=== PATIENT | male | born 1990 | race Caucasian/White ===

== ENCOUNTER 2019-03-18 08:37 | Emergency (ER) | payer BC ==
[2019-03-18 09:20] VITALS: BP 131/88; PULSE 69
--- NOTE | 2019-03-18 09:43 | EDM.PDOC ---
ED HPI GENERAL MEDICAL PROBLEM - General Chief Complaint: Gastrointestinal Problem Stated Complaint: BLACK STOOL/DIARRHEA Time Seen by Provider: 03/18/19 09:41 Source of Information: Reports: Patient History Limitations: Reports: No Limitations - History of Present Illness INITIAL COMMENTS - FREE TEXT/NARRATIVE: 28-year-old male presents the ED with acute onset of abdominal cramping pain and diarrhea yesterday. He believes that he went somewhere between 6 and 12 times yesterday high-volume watery stool loss mostly yellowish in color. Little more black in color this morning. He ate some pizza that he had left over from the night before. He woke up yesterday morning however need that for supper the night before. She fever chills. He did vomit 1 chest 2 morning of partially undigested food in bile. Currently having mild diffuse abdominal cramping pain. Currently has a distant dull ache pressure discomfort in his mid abdomen. Feels weak dizzy when he stands up. Of note he did take a dose of Pepto-Bismol last night which is likely the cause of his dark black stool this morning. Onset: Sudden Onset Date: 03/17/19 Duration: Day(s): (And a half.), Constant Location: Reports: Abdomen (Intermittent diarrhea for the last day and a half.) Quality: Reports: Ache Severity: Moderate Improves with: Reports: None Worsens with: Reports: Other (Trying to eat or drink.) Context: Reports: Other (Spontaneous occurrence yesterday morning.). Denies: Activity, Exercise, Lifting, Sick Contact, Trauma Associated Symptoms: Reports: Loss of Appetite, Malaise, Nausea/Vomiting, Other (Diarrhea.). Denies: Confusion, Chest Pain ( Foodborne illness.), Cough, cough w sputum, Diaphoresis, Fever/Chills, Headaches, Rash, Seizure, Shortness of Breath, Syncope Treatments MANAGER QUALITY COMPLIANCE: Reports: Other (see below) (None.) Abdomen Pain Score (Numeric/FACES): 5 - Related Data Allergies Allergy/AdvReac Type Severity Reaction Status Date / Time No Known Allergies Allergy Verified 03/18/19 09:20 Home Meds: Home Meds Dicyclomine [Bentyl] 20 mg PO Q6H PRN #6 tablet 03/18/19 [Rx] Ondansetron [Zofran] 4 mg BUCCAL Q6H PRN #6 tab 03/18/19 [Rx] Past Medical History Musculoskeletal History: Reports: Other (See Below) Other Musculoskeletal History: left femur with arlen - Infectious Disease History Infectious Disease History: Reports: Chicken Pox - Past Surgical History HEENT Surgical History: Reports: Myringotomy w Tube(s), Oral Surgery Musculoskeletal Surgical History: Reports: Other (See Below) Other Musculoskeletal Surgeries/Procedures:: surgery to L femur with rods Social & Family History - Family History Family Medical History: Noncontributory - Tobacco Use Smoking Status *Q: Current Every Day Smoker Years of Tobacco use: 11 Packs/Tins Daily: 1 - Caffeine Use Caffeine Use: Reports: Coffee - Recreational Drug Use Recreational Drug Use: No - Living Situation & Occupation Living situation: Reports: Single Occupation: Employed ED ROS GENERAL - Review of Systems Review Of Systems: See Below Constitutional: Reports: No Symptoms HEENT: Reports: No Symptoms Respiratory: Reports: No Symptoms Cardiovascular: Reports: No Symptoms Endocrine: Reports: No Symptoms GI/Abdominal: Reports: No Symptoms : Reports: No Symptoms Musculoskeletal: Reports: No Symptoms Skin: Reports: No Symptoms Neurological: Reports: No Symptoms Psychiatric: Reports: No Symptoms Hematologic/Lymphatic: Reports: No Symptoms Immunologic: Reports: No Symptoms ED EXAM, GI/ABD - Physical Exam Exam: See Below Exam Limited By: No Limitations General Appearance: Alert, WD/WN, Mild Distress Eyes: Bilateral: Normal Appearance (No scleral icterus) Throat/Mouth: Other (Tongue is mildly dry.) Head: Atraumatic, Other Neck: Normal Inspection, Supple, Non-Tender, Full Range of Motion. No: Lymphadenopathy (L), Lymphadenopathy (R) Respiratory/Chest: No Respiratory Distress, Lungs Clear, Normal Breath Sounds. No: Respiratory Distress Cardiovascular: Normal Peripheral Pulses, Regular Rate, Rhythm, No Edema, No Gallop, No Murmur, No Rub GI/Abdominal Exam: Soft, Tender, Abnormal Bowel Sounds (Increased bowel sounds throughout all 4 quadrants.). No: Guarding, Rigid, Rebound (Minimally tender periumbilical with no rebound) (Male) Exam: No Hernia Back Exam: Normal Inspection, Full Range of Motion Extremities: Normal Inspection, Normal Range of Motion, Non-Tender Neurological: Alert, Oriented, CN II-XII Intact, Normal Cognition Psychiatric: Normal Affect, Normal Mood Skin Exam: Warm, Dry, Intact, Normal Color, No Rash Course - Vital Signs Last Recorded V/S: Last Vital Signs Temp 36.7 C 03/18/19 09:16 Pulse 69 03/18/19 09:16 Resp 19 03/18/19 09:16 BP 131/88 03/18/19 09:16 Pulse Ox 99 03/18/19 09:16 - Orders/Labs/Meds Orders: Active Orders 24 hr Category Date Time Status CULTURE STOOL + SHIGATOX [RM] Stat Lab 03/18/19 09:40 Received Dextrose 5%-Lactated Ringers 1,000 ml Med 03/18/19 09:45 Active IV ASDIRECTED Ketorolac [Toradol] Med 03/18/19 10:15 Active 30 mg IVPUSH ONETIME Medication Orders Dextrose/Lactated Ringer's (Dextrose 5%-Lactated Ringers) 1,000 mls @ 999 mls/ hr IV ASDIRECTED EDNA Last Admin: 03/18/19 10:33 Dose: 999 mls/hr Ketorolac Tromethamine (Toradol) 30 mg IVPUSH ONETIME EDNA Last Admin: 03/18/19 10:33 Dose: 30 mg Labs: Laboratory Tests 03/18/19 03/18/19 03/18/19 Range/Units 09:30 10:15 10:15 WBC 5.11 (4.23-9.07) K/mm3 RBC 5.07 (4.63-6.08) M/mm3 Hgb 15.5 (13.7-17.5) gm/dl Hct 45.3 (40.1-51.0) % MCV 89.3 (79.0-92.2) fl MCH 30.6 (25.7-32.2) pg MCHC 34.2 (32.2-35.5) g/dl RDW Std Deviation 41.5 (35.1-43.9) fL Plt Count 173 (163-337) K/mm3 MPV 9.3 L (9.4-12.3) fl Neutrophils % (Manual) 68 H (40-60) % Band Neutrophils % 0 (0-10) % Lymphocytes % (Manual) 17 L (20-40) % Atypical Lymphs % 0 % Monocytes % (Manual) 11 H (2-10) % Eosinophils % (Manual) 4 (0.8-7.0) % Basophils % (Manual) 0 L (0.2-1.2) Platelet Estimate Adequate RBC Morph Comment Normal Sodium 136 (136-145) mEq/L Potassium 4.3 (3.5-5.1) mEq/L Chloride 103 (98-107) mEq/L Carbon Dioxide 22 (21-32) mEq/L Anion Gap 15.3 H (5-15) BUN 14 (7-18) mg/dL Creatinine 0.9 (0.7-1.3) mg/dL Est Cr Clr Drug Dosing 121.52 mL/min Estimated GFR (MDRD) > 60 (>60) mL/min BUN/Creatinine Ratio 15.6 (14-18) Glucose 95 (74-106) mg/dL Calcium 9.2 (8.5-10.1) mg/dL Magnesium 2.0 (1.8-2.4) mg/dl Total Bilirubin 0.3 (0.2-1.0) mg/dL AST 19 (15-37) U/L ALT 25 (16-63) U/L Alkaline Phosphatase 61 (46-116) U/L C-Reactive Protein 2.1 H* (<1.0) mg/dL Total Protein 7.5 (6.4-8.2) g/dl Albumin 4.2 (3.4-5.0) g/dl Globulin 3.3 gm/dL Albumin/Globulin Ratio 1.3 (1-2) Lipase (73-393) U/L Urine Color Yellow (Yellow) Urine Appearance Clear (Clear) Urine pH 5.5 (5.0-8.0) Ur Specific Elim 1.025 (1.005-1.030) Urine Protein Negative (Negative) Urine Glucose (UA) Negative (Negative) Urine Ketones Negative (Negative) Urine Occult Blood Trace-intact H (Negative) Urine Nitrite Negative (Negative) Urine Bilirubin Negative (Negative) Urine Urobilinogen 0.2 (0.2-1.0) Ur Leukocyte Esterase Negative (Negative) Urine RBC 5-10 H (0-5) /hpf Urine WBC 0-5 (0-5) /hpf Ur Epithelial Cells 0-5 (0-5) /hpf Urine Bacteria Few (FEW) /hpf Urine Mucus Many H (FEW) /hpf 03/18/19 Range/Units 10:15 WBC (4.23-9.07) K/mm3 RBC (4.63-6.08) M/mm3 Hgb (13.7-17.5) gm/dl Hct (40.1-51.0) % MCV (79.0-92.2) fl MCH (25.7-32.2) pg MCHC (32.2-35.5) g/dl RDW Std Deviation (35.1-43.9) fL Plt Count (163-337) K/mm3 MPV (9.4-12.3) fl Neutrophils % (Manual) (40-60) % Band Neutrophils % (0-10) % Lymphocytes % (Manual) (20-40) % Atypical Lymphs % % Monocytes % (Manual) (2-10) % Eosinophils % (Manual) (0.8-7.0) % Basophils % (Manual) (0.2-1.2) Platelet Estimate RBC Morph Comment Sodium (136-145) mEq/L Potassium (3.5-5.1) mEq/L Chloride (98-107) mEq/L Carbon Dioxide (21-32) mEq/L Anion Gap (5-15) BUN (7-18) mg/dL Creatinine (0.7-1.3) mg/dL Est Cr Clr Drug Dosing mL/min Estimated GFR (MDRD) (>60) mL/min BUN/Creatinine Ratio (14-18) Glucose (74-106) mg/dL Calcium (8.5-10.1) mg/dL Magnesium (1.8-2.4) mg/dl Total Bilirubin (0.2-1.0) mg/dL AST (15-37) U/L ALT (16-63) U/L Alkaline Phosphatase (46-116) U/L C-Reactive Protein (<1.0) mg/dL Total Protein (6.4-8.2) g/dl Albumin (3.4-5.0) g/dl Globulin gm/dL Albumin/Globulin Ratio (1-2) Lipase 58 L (73-393) U/L Urine Color (Yellow) Urine Appearance (Clear) Urine pH (5.0-8.0) Ur Specific Elim (1.005-1.030) Urine Protein (Negative) Urine Glucose (UA) (Negative) Urine Ketones (Negative) Urine Occult Blood (Negative) Urine Nitrite (Negative) Urine Bilirubin (Negative) Urine Urobilinogen (0.2-1.0) Ur Leukocyte Esterase (Negative) Urine RBC (0-5) /hpf Urine WBC (0-5) /hpf Ur Epithelial Cells (0-5) /hpf Urine Bacteria (FEW) /hpf Urine Mucus (FEW) /hpf Meds: Medications Generic Name Dose Route Start Last Admin Trade Name Freq PRN Reason Stop Dose Admin Dextrose/Lactated Ringer's 1,000 mls @ 999 mls/hr 03/18/19 09:45 03/18/19 10: 33 Dextrose 5%-Lactated Ringers IV 999 mls/hr ASDIRECTED EDNA Administration Ketorolac Tromethamine 30 mg 03/18/19 10:15 03/18/19 10:33 Toradol IVPUSH 30 mg ONETIME EDNA Administration Discontinued Medications Generic Name Dose Route Start Last Admin Trade Name Freq PRN Reason Stop Dose Admin Dicyclomine HCl 20 mg 03/18/19 12:02 Bentyl PO 03/18/19 12:03 ONETIME ONE Hydromorphone HCl 0.5 mg 03/18/19 12:02 Dilaudid IVPUSH 03/18/19 12:03 ONETIME ONE Metoclopramide HCl 7.5 mg 03/18/19 11:03 03/18/19 11:23 Reglan IVPUSH 03/18/19 11:04 7.5 mg ONETIME ONE Administration - Radiology Interpretation Free Text/Narrative:: 20-year-old male presents to the ED with acute onset of mild PAIN and quite severe diarrhea starting yesterday morning upon awakening. He states yesterday once between 6 and 12 times large-volume yellowish dark stool color. This morning he gone 3 times and is more dark black in color. He has a deep aching discomfort in his epigastrium. He feels weak and dizzy when standing. Orthostatics were mildly positive. Small possibility of foodborne illness. The stool has been collected and will be sent for white blood cells and culture. Most likely viral gastroenteritis. An IV D5 Ringer's lactate at open. Routine labs to be obtained CBC CMP CRP and a lipase. Currently he is not nauseated or vomiting. - Re-Assessments/Exams Free Text/Narrative Re-Assessment/Exam: 03/18/19 11:04 patient is now feeling more nauseated with increased abdominal cramping pain. I did order Toradol 30 mg IV for relief of pain given Reglan 7.5 mg IV.Labs reveal a normal white count at 5.11. Differential is 60% neutrophils no bands. 17% lymphocytes. Hemoglobin is 15.5 with hematocrit of 45.3. Platelet counts 173,000. Urinalysis was normal with a trace of intact blood. No signs of infection. Stool contains no white blood cells strongly suggesting viral etiology. 03/18/19 11:44 Chemistry is now back showing a sodium of 136 and a potassium maintained at 4.3. Chloride 103 with a bicarbonate 22. Anion gap is 15.3. BUN is 14 with a creatinine of 0.9. GFR is greater than 60. Glucose is 95 with a calcium of 9.2. Magnesium is 2.0. Total bilirubin is 0.3. AST is 19 with an ALT of 29. Alk phosphatase is 61. C-reactive protein is mildly elevated at 2.1. Total protein 7.5 with an albumin fraction of 4.2. Lipase is 58. Urinalysis shows trace blood alcohol blood and 5-10 RBCs per high-power field. 03/18/19 12:03 nausea is improved. Still having diffuse abdominal discomfort. Going to give him Bentyl 20 mg by mouth and dose of Dilaudid 0.5 mg IV before pulled his IV. He will go home on clear fluids such as Gatorade/Powerade. Jell- O at any time. Advance to soup broth later tonight such as turkey rice chicken noodle etc. Avoid all dairy products and no apple juice or grape juice until stools are formed backup. Going to send him home with Zofran 4 mg sublingual every 4-6 hours when necessary 6 tablets. Bentyl 20 mg every 6 hours as needed for relief of abdominal cramping pain 6 tablets. Departure - Departure Time of Disposition: 12:10 Disposition: Home, Self-Care 01 Condition: Fair Clinical Impression: Viral gastroenteritis, Abdominal pain - Discharge Information *PRESCRIPTION DRUG MONITORING PROGRAM REVIEWED*: Not Applicable *COPY OF PRESCRIPTION DRUG MONITORING REPORT IN PATIENT MARILIN: Not Applicable Prescriptions: Dicyclomine [Bentyl] 20 mg PO Q6H PRN #6 tablet PRN Reason: Abdominal cramps/diarrhea Ondansetron [Zofran] 4 mg BUCCAL Q6H PRN #6 tab PRN Reason: nausea or vomiting Referrals: PCP,None [Primary Care Provider] - Forms: ED Department Discharge, ED Return to Work/School Form Additional Instructions: Evaluation the emergency room today in regards to acute onset of nausea vomiting followed by significant diarrhea. Does cause volume depletion which dropped her blood pressure and major dizzy and weak. Her headache rehydrated in the ED with a liter of IV fluids. Last proved to be highly suggestive of a viral gastroenteritis versus foodborne illness. Is a black because of taking Pepto-Bismol last night no sign of a GI bleed or internal hemorrhage. Treatment is time to get the virus side of your system. This usually about 3 days. Treatment at home is Gatorade/Powerade usually 5-6 ounces sipped per hour to maintain hydration. Hungry try soda crackers first and if tolerated may take Jell-O at any time. May then advance to toast with a little bit of jam on it etc. Then advance to soup broth or turkey noodle/chicken rice soup when hungry. Avoid all dairy products and no apple juice or grape juice until stools are formed back up. This will take about 45 days once the diarrhea has subsided. May take Zofran 4 mg under the tongue every 4-6 hours necessary for relief of any further nausea to prevent vomiting. Just Bentyl 20 mg tablet every 6 hours as needed for relief of abdominal cramping pain or abdominal discomfort. Expect improvement over the next 36 hours. - My Orders Last 24 Hours: My Active Orders 03/18/19 09:40 CULTURE STOOL + SHIGATOX [RM] Stat 03/18/19 09:45 Dextrose 5%-Lactated Ringers 1,000 ml IV ASDIRECTED 03/18/19 10:15 Ketorolac [Toradol] 30 mg IVPUSH ONETIME - Assessment/Plan Last 24 Hours: My Active Orders 03/18/19 09:40 CULTURE STOOL + SHIGATOX [RM] Stat 03/18/19 09:45 Dextrose 5%-Lactated Ringers 1,000 ml IV ASDIRECTED 03/18/19 10:15 Ketorolac [Toradol] 30 mg IVPUSH ONETIME
[2019-03-18] MEDS ORDERED: Dextrose 5%-Lactated Ringers 1,000 ML IV SCH (09:45)
[2019-03-18] MEDS ORDERED: Ketorolac 30 MG/ML SDV IVPUSH SCH (10:15)
[2019-03-18] MEDS ORDERED: Metoclopramide 10 MG/2 ML SDV IVPUSH ONE (11:03)
[2019-03-18] MEDS ORDERED: Dicyclomine 10 MG Cap PO ONE (12:02)
[2019-03-18] MEDS ORDERED: HYDROmorphone 0.5 MG/0.5 ML Syringe IVPUSH ONE (12:02)
== END 2019-03-18 12:05 | disposition home or self-care (01) ==
LOC: JD.ED 08:37
DX: A08.4 Viral intestinal infection, unspecified (principal); F17.200 Nicotine dependence, unspecified, uncomplicated
CPT/HCPCS: 36415; 80053; 81001; 83690; 83735; 85007; 85027; 86140; 87046; 89055; 96361; 96374; 96375; 99284; J1885; J2765; J7042

== ENCOUNTER 2021-05-14 10:38 | Emergency (ER) | payer BC, MEDICAID ==
[2021-05-14 10:59] VITALS: BP 120/67; PULSE 58
[2021-05-14] MEDS ORDERED: Sodium Chloride 0.9% 1,000 ML IV SCH (11:15)
[2021-05-14] MEDS ORDERED: Ondansetron 4 MG/2 ML SDV IVPUSH ONE (11:15)
[2021-05-14] MEDS ORDERED: Sodium Chloride 0.9% 10 ML Syringe FLUSH PRN (11:15)
[2021-05-14] MEDS ORDERED: HYDROmorphone 0.5 MG/0.5 ML Syringe IVPUSH ONE (11:17)
[2021-05-14] MEDS ORDERED: Ketorolac 30 MG/ML SDV IVPUSH ONE (11:17)
--- NOTE | 2021-05-14 12:09 | CT ---
CT abdomen and pelvis Technique: Multiple axial sections were obtained from above the dome of the diaphragm inferiorly through the pubic symphysis. Intravenous and oral contrast were not utilized. Reconstructed coronal and sagittal images were obtained. Comparison: No previous abdominal study is available. Findings: Both kidneys show slight increased density within the collecting systems which is suspicious for early medullary sponge kidney. Definite nonobstructing calculus is noted within the left kidney measuring 2 mm. Ureters show no dilatation. No abnormal calcifications are seen along the course of the ureters. Bladder shows no abnormal calcifications. Visualized lung bases show nothing acute. Noncontrast appearance of the liver appears within normal limits. Spleen appears within normal limits. Adrenal glands show no nodule. Pancreas shows no discrete abnormality. Gallbladder contains no calcified gallstones. Abdominal aorta shows no aneurysm. No retroperitoneal adenopathy is seen. Appendix is seen and appears to be normal in size. Increased stool is noted throughout the colon. No discrete pelvic adenopathy or mass is seen. Bone window settings were reviewed. Vacuum disc phenomena is seen within the L5-S1 disc. Other portions of the osseous structures show nothing acute. Small amount of fluid is noted off the inferior liver as well as within the pelvis. Etiology for this fluid is not appreciated. Impression: 1. 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 Small 2 mm calculus is noted within the lower left kidney. No ureteral dilatation or ureteral stone is seen. 2. Mild increased stool within the colon is seen. 3. Small amount of nonspecific fluid is seen off the inferior liver and within the pelvis. 4. Other findings believed to be incidental as noted above. Diagnostic code #3
--- NOTE | 2021-05-14 12:25 | EDM.PDOC ---
ED HPI GENERAL MEDICAL PROBLEM - General Chief Complaint: Abdominal Pain Stated Complaint: RT ABD PAIN Time Seen by Provider: 05/14/21 10:49 Source of Information: Reports: Patient History Limitations: Reports: No Limitations - History of Present Illness INITIAL COMMENTS - FREE TEXT/NARRATIVE: The patient presents with lower abdominal pain and right flank pain. This all started last night. He has some nausea but no vomiting. He has some dysuria. He has not had a bowel movement in 2 days. He has no fever, chills, cough, congestion, runny nose, chest pain, shortness of breath or diarrhea. He still has appendix and gallbladder. He never had a kidney stone before. Onset: Gradual Duration: Day(s): (last night) Location: Reports: Abdomen, Back Quality: Reports: Sharp Severity: Moderate Improves with: Reports: None Worsens with: Reports: None Associated Symptoms: Reports: Nausea/Vomiting. Denies: Chest Pain, Cough, Fever/Chills, Headaches, Shortness of Breath Lower Abdomen Pain Score (Numeric/FACES): 3 - Related Data Allergies Allergy/AdvReac Type Severity Reaction Status Date / Time No Known Allergies Allergy Verified 05/14/21 10:58 Home Meds: Home Meds . [No Known Home Meds] 05/14/21 [History] Past Medical History Musculoskeletal History: Reports: Other (See Below) Other Musculoskeletal History: left femur with arlen - Infectious Disease History Infectious Disease History: Reports: Chicken Pox - Past Surgical History HEENT Surgical History: Reports: Myringotomy w Tube(s), Oral Surgery Musculoskeletal Surgical History: Reports: Other (See Below) Other Musculoskeletal Surgeries/Procedures:: surgery to L femur with rods Social & Family History - Family History Family Medical History: No Pertinent Family History - Tobacco Use Tobacco Use Status *Q: Current Every Day Tobacco User Years of Tobacco use: 14 Packs/Tins Daily: 0.8 - Caffeine Use Caffeine Use: Reports: Coffee - Recreational Drug Use Recreational Drug Use: No - Living Situation & Occupation Living situation: Reports: Single Occupation: Employed ED ROS GENERAL - Review of Systems Review Of Systems: See Below Constitutional: Reports: No Symptoms HEENT: Reports: No Symptoms Respiratory: Reports: No Symptoms Cardiovascular: Reports: No Symptoms Endocrine: Reports: No Symptoms GI/Abdominal: Reports: Abdominal Pain, Nausea. Denies: Diarrhea, Vomiting : Reports: Dysuria, Flank Pain Musculoskeletal: Reports: Back Pain ED EXAM, GI/ABD - Physical Exam Exam: See Below Exam Limited By: No Limitations General Appearance: Alert, No Apparent Distress Ears: Normal External Exam Nose: Normal Inspection Head: Atraumatic, Normocephalic Neck: Normal Inspection Respiratory/Chest: No Respiratory Distress, Lungs Clear, Normal Breath Sounds Cardiovascular: Regular Rate, Rhythm, No Edema, No Murmur GI/Abdominal Exam: Soft, No Organomegaly, Tender (moderate tenderness to the RLQ and lower mid abdomen) Back Exam: CVA Tenderness (R) Extremities: Normal Inspection Course - Vital Signs Last Recorded V/S: Last Vital Signs Temp 96.9 F 05/14/21 10:52 Pulse 58 L 05/14/21 10:52 Resp 18 05/14/21 10:52 BP 120/67 05/14/21 10:52 Pulse Ox 100 05/14/21 10:52 - Orders/Labs/Meds Orders: Active Orders 24 hr Category Date Time Status Peripheral IV Care [RC] . DIRECTED Care 05/14/21 11:16 Active UA W/MICROSCOPIC [URIN] Stat Lab 05/14/21 13:24 Results Sodium Chloride 0.9% [Normal Saline] 1,000 ml Med 05/14/21 11:15 Active IV ASDIRECTED Sodium Chloride 0.9% [Saline Flush] Med 05/14/21 11:15 Active 10 ml FLUSH ASDIRECTED PRN ED Antiemetic Medication Reflex [OM.PC] Stat Oth 05/14/21 11:16 Ordered Peripheral IV Insertion Adult [OM.PC] Stat Oth 05/14/21 11:15 Ordered Medication Orders Sodium Chloride (Normal Saline) 1,000 mls @ 125 mls/hr IV ASDIRECTED EDNA Last Admin: 05/14/21 11:27 Dose: 125 mls/hr Documented by: DENVER Sodium Chloride (Sodium Chloride 0.9% 10 Ml Syringe) 10 ml FLUSH ASDIRECTED PRN PRN Reason: Keep Vein Open Last Admin: 05/14/21 11:28 Dose: 10 ml Documented by: DENVER Labs: Laboratory Tests 05/14/21 05/14/21 05/14/21 Range/Units 11:30 11:30 13:24 WBC 14.52 H (4.23-9.07) K/mm3 RBC 4.81 (4.63-6.08) M/mm3 Hgb 14.7 (13.7-17.5) gm/dl Hct 44.8 (40.1-51.0) % MCV 93.1 H D (79.0-92.2) fl MCH 30.6 (25.7-32.2) pg MCHC 32.8 (32.2-35.5) g/dl RDW Std Deviation 41.5 (35.1-43.9) fL Plt Count 292 D (163-337) K/mm3 MPV 8.7 L (9.4-12.3) fl Neut % (Auto) 81.8 H (34.0-67.9) % Lymph % (Auto) 8.8 L (21.8-53.1) % Patrick % (Auto) 8.3 (5.3-12.2) % Eos % (Auto) 0.8 (0.8-7.0) Baso % (Auto) 0.1 (0.1-1.2) % Neut # (Auto) 11.89 H (1.78-5.38) K/mm3 Lymph # (Auto) 1.28 L (1.32-3.57) K/mm3 Patrick # (Auto) 1.20 H (0.30-0.82) K/mm3 Eos # (Auto) 0.11 (0.04-0.54) K/mm3 Baso # (Auto) 0.01 (0.01-0.08) K/mm3 Sodium 141 (136-145) mEq/L Potassium 4.2 (3.5-5.1) mEq/L Chloride 103 (98-107) mEq/L Carbon Dioxide 30 (21-32) mEq/L Anion Gap 12.2 (5-15) BUN 13 (7-18) mg/dL Creatinine 0.8 (0.7-1.3) mg/dL Est Cr Clr Drug Dosing 134.27 mL/min Estimated GFR (MDRD) > 60 (>60) mL/min BUN/Creatinine Ratio 16.3 (14-18) Glucose 111 H (70-99) mg/dL Calcium 8.9 (8.5-10.1) mg/dL Total Bilirubin 0.3 (0.2-1.0) mg/dL AST 10 L (15-37) U/L ALT 22 (16-63) U/L Alkaline Phosphatase 73 (46-116) U/L Total Protein 6.7 (6.4-8.2) g/dl Albumin 4.1 (3.4-5.0) g/dl Globulin 2.6 gm/dL Albumin/Globulin Ratio 1.6 (1-2) Lipase 47 L (73-393) U/L Urine Color Yellow (Yellow) Urine Appearance Clear (Clear) Urine pH 7.0 (5.0-8.0) Ur Specific Weiser 1.025 (1.005-1.030) Urine Protein 1+ H (Negative) Urine Glucose (UA) Negative (Negative) Urine Ketones Negative (Negative) Urine Occult Blood Negative (Negative) Urine Nitrite Negative (Negative) Urine Bilirubin Negative (Negative) Urine Urobilinogen 1.0 (0.2-1.0) Ur Leukocyte Esterase Negative (Negative) Meds: Medications Generic Name Dose Route Start Last Admin Trade Name Ross PRN Reason Stop Dose Admin Sodium Chloride 1,000 mls @ 125 mls/hr 05/14/21 11:15 05/14/21 11:27 Normal Saline IV 125 mls/hr ASDIRECTED EDNA Administration Sodium Chloride 10 ml 05/14/21 11:15 05/14/21 11:28 Sodium Chloride 0.9% 10 Ml Syringe FLUSH 10 ml ASDIRECTED PRN Administration Keep Vein Open Discontinued Medications Generic Name Dose Route Start Last Admin Trade Name Ross PRN Reason Stop Dose Admin Hydromorphone HCl 0.5 mg 05/14/21 11:17 05/14/21 11:28 Hydromorphone 0.5 Mg/0.5 Ml Syringe IVPUSH 05/14/21 11:18 0.5 mg ONETIME ONE Administration Ketorolac Tromethamine 30 mg 05/14/21 11:17 05/14/21 11:27 Ketorolac 30 Mg/Ml Sdv IVPUSH 05/14/21 11:18 30 mg ONETIME ONE Administration Ondansetron HCl 4 mg 05/14/21 11:15 05/14/21 11:28 Ondansetron 4 Mg/2 Ml Sdv IVPUSH 05/14/21 11:16 4 mg ONETIME ONE Administration - Re-Assessments/Exams Free Text/Narrative Re-Assessment/Exam: 05/14/21 12:21 I ordered an IV NS 1L bolus, zofran 4mg IV, dilaudid 1mg IV, toradol 30mg IV, labs, UA and a CT of his abdomen and pelvis without contrast to look for a kidney stone. His WBC was elevated at 14.52. His CMP looks good. His lipase was low at 47. 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 Small 2mm calculus is noted within the lower left kidney. No ureteral dilatation or ureteral stone is seen. Mild increased stool within the colon is seen. Small amount of nonspecific fluid is seen off the inferior liver and within the pelvis. Other findings believed to be incidental. The appendix is seen and appears to be normal in size. 05/14/21 13:43 He feels better. I feel this could be constipation. I will give him some magnesium citrate here and some more for home and have him return if he is worse. Departure - Departure Time of Disposition: 13:50 Disposition: Home, Self-Care 01 Condition: Good Clinical Impression: Abdominal pain Qualifiers: Abdominal location: lower abdomen, unspecified Qualified Code(s): R10.30 - Lower abdominal pain, unspecified Constipation Qualifiers: Constipation type: other constipation type Qualified Code(s): K59.09 - Other constipation - Discharge Information *PRESCRIPTION DRUG MONITORING PROGRAM REVIEWED*: Not Applicable *COPY OF PRESCRIPTION DRUG MONITORING REPORT IN PATIENT MARILIN: Not Applicable Referrals: PCP,None [Primary Care Provider] - Sonali Gagnon MD [Physician] - 1 Week Forms: ED Department Discharge Additional Instructions: Drink plenty of fluids. If you do not have a bowel movement by 5pm take the other half of the bottle of magnesium citrate. Please return if you are worse. Sepsis Event Note (ED) - Evaluation Sepsis Screening Result: No Definite Risk - Focused Exam Vital Signs: Vital Signs Temp Pulse Resp BP Pulse Ox 05/14/21 10:52 96.9 F 58 L 18 120/67 100 - My Orders Last 24 Hours: My Active Orders 05/14/21 11:15 Sodium Chloride 0.9% [Normal Saline] 1,000 ml IV ASDIRECTED Sodium Chloride 0.9% [Saline Flush] 10 ml FLUSH ASDIRECTED PRN Peripheral IV Insertion Adult [OM.PC] Stat 05/14/21 11:16 Peripheral IV Care [RC] . DIRECTED ED Antiemetic Medication Reflex [OM.PC] Stat 05/14/21 13:24 UA W/MICROSCOPIC [URIN] Stat - Assessment/Plan Last 24 Hours: My Active Orders 05/14/21 11:15 Sodium Chloride 0.9% [Normal Saline] 1,000 ml IV ASDIRECTED Sodium Chloride 0.9% [Saline Flush] 10 ml FLUSH ASDIRECTED PRN Peripheral IV Insertion Adult [OM.PC] Stat 05/14/21 11:16 Peripheral IV Care [RC] . DIRECTED ED Antiemetic Medication Reflex [OM.PC] Stat 05/14/21 13:24 UA W/MICROSCOPIC [URIN] Stat
[2021-05-14] MEDS ORDERED: Magnesium Citrate Solution 296 ML Bottle PO ONE (13:46)
== END 2021-05-14 14:15 | disposition home or self-care (01) ==
LOC: JD.ED 10:38
DX: K59.09 Other constipation (principal); R11.2 Nausea with vomiting, unspecified; Z72.0 Tobacco use
CPT/HCPCS: 36415; 74176; 74176-26; 80053; 81001; 83690; 85025; 96374; 96375; 99284-25; 99285; A9270-GY; J1170; J1885; J2405; J7030

== ENCOUNTER 2021-05-15 08:31 | Emergency (ER) | payer MEDICAID ==
--- NOTE | 2021-05-15 09:25 | EDM.PDOC ---
ED HPI GENERAL MEDICAL PROBLEM - General Chief Complaint: Abdominal Pain Stated Complaint: CONSTIPATION Time Seen by Provider: 05/15/21 09:25 - History of Present Illness INITIAL COMMENTS - FREE TEXT/NARRATIVE: 30-year-old male presents the emergency room with abdominal pain. Patient was seen here yesterday had a pretty thorough evaluation laboratory evaluation is unrevealing CT without contrast showed a normal appendix no ev idence of kidney stone. He might have some development consistent with medullary sponge disease he had stool throughout his colon. He was treated as though he might have constipation and despite mag citrate he is not getting any better the patient has some nausea no vomiting he feels the pain is actually getting worse. He has not had any fevers or chills. Treatments DERRICK HAND: Reports: Other (see below) Other Treatments DERRICK HAND: Laxative, Suppository Bilateral Lower Abdomen Pain Score (Numeric/FACES): 5 - Related Data Allergies Allergy/AdvReac Type Severity Reaction Status Date / Time No Known Allergies Allergy Verified 05/14/21 10:58 Home Meds: Home Meds . [No Known Home Meds] 05/14/21 [History] Past Medical History Musculoskeletal History: Reports: Other (See Below) Other Musculoskeletal History: left femur with arlen - Infectious Disease History Infectious Disease History: Reports: Chicken Pox - Past Surgical History HEENT Surgical History: Reports: Myringotomy w Tube(s), Oral Surgery Musculoskeletal Surgical History: Reports: Other (See Below) Other Musculoskeletal Surgeries/Procedures:: surgery to L femur with rods Social & Family History - Family History Family Medical History: No Pertinent Family History - Tobacco Use Tobacco Use Status *Q: Current Every Day Tobacco User Years of Tobacco use: 15 Packs/Tins Daily: 7 - Caffeine Use Caffeine Use: Reports: Coffee - Alcohol Use Days Per Week of Alcohol Use: 7 Number of Drinks Per Day: 2 Total Drinks Per Week: 14 - Recreational Drug Use Recreational Drug Use: No - Living Situation & Occupation Living situation: Reports: Single Occupation: Employed ED ROS GENERAL - Review of Systems Review Of Systems: See Below Constitutional: Reports: No Symptoms HEENT: Reports: No Symptoms Respiratory: Reports: No Symptoms Cardiovascular: Reports: No Symptoms GI/Abdominal: Reports: Abdominal Pain, Constipation, Decreased Appetite, Nausea. Denies: Diarrhea : Reports: No Symptoms Musculoskeletal: Reports: No Symptoms Skin: Reports: No Symptoms Neurological: Reports: No Symptoms ED EXAM, GENERAL - Physical Exam Exam: See Below Exam Limited By: No Limitations General Appearance: Mild Distress (From the discomfort), Other (He has to position himself in the areas to find comfort) Head: Atraumatic, Normocephalic Neck: Normal Inspection, Supple, Non-Tender, Full Range of Motion Respiratory/Chest: No Respiratory Distress, Lungs Clear, Normal Breath Sounds Cardiovascular: Regular Rate, Rhythm, No Edema, No Murmur GI/Abdominal: Normal Bowel Sounds, Guarding, Rebound, Other (Rebound tenderness) Back Exam: Normal Inspection. No: CVA Tenderness (L), CVA Tenderness (R) Course - Vital Signs Last Recorded V/S: Last Vital Signs Temp 36.2 C 05/15/21 08:41 Pulse 77 05/15/21 08:41 Resp 16 05/15/21 08:41 BP 102/72 05/15/21 08:41 Pulse Ox 100 05/15/21 08:41 - Orders/Labs/Meds Orders: Active Orders 24 hr Category Date Time Status UA RFX BRIEN AND CULT IF INDIC [URIN] Stat Lab 05/15/21 09:32 Ordered Lactated Ringers [Ringers, Lactated] 1,000 ml Med 05/15/21 09:45 Active IV ASDIRECTED Sodium Chloride 0.9% [Saline Flush] Med 05/15/21 09:43 Active 10 ml FLUSH ONETIME PRN Medication Orders Lactated Ringer's (Ringers, Lactated) 1,000 mls @ 125 mls/hr IV ASDIRECTED EDNA Sodium Chloride (Sodium Chloride 0.9% 10 Ml Syringe) 10 ml FLUSH ONETIME PRN PRN Reason: IV FLUSH Last Admin: 05/15/21 11:07 Dose: 10 ml Documented by: Admin: 05/15/21 10:50 Dose: 10 ml Documented by: MARLENE Labs: Laboratory Tests 05/15/21 05/15/21 Range/Units 09:55 09:55 WBC 6.06 (4.23-9.07) K/mm3 RBC 3.59 L (4.63-6.08) M/mm3 Hgb 11.1 L D (13.7-17.5) gm/dl Hct 34.3 L (40.1-51.0) % MCV 95.5 H (79.0-92.2) fl MCH 30.9 (25.7-32.2) pg MCHC 32.4 (32.2-35.5) g/dl RDW Std Deviation 40.7 (35.1-43.9) fL Plt Count 195 D (163-337) K/mm3 MPV 8.0 L (9.4-12.3) fl Neut % (Auto) 71.2 H (34.0-67.9) % Lymph % (Auto) 16.7 L (21.8-53.1) % Towns % (Auto) 11.2 (5.3-12.2) % Eos % (Auto) 0.7 L (0.8-7.0) Baso % (Auto) 0.2 (0.1-1.2) % Neut # (Auto) 4.32 (1.78-5.38) K/mm3 Lymph # (Auto) 1.01 L (1.32-3.57) K/mm3 Towns # (Auto) 0.68 (0.30-0.82) K/mm3 Eos # (Auto) 0.04 (0.04-0.54) K/mm3 Baso # (Auto) 0.01 (0.01-0.08) K/mm3 Sodium 137 (136-145) mEq/L Potassium 4.0 (3.5-5.1) mEq/L Chloride 101 (98-107) mEq/L Carbon Dioxide 33 H (21-32) mEq/L Anion Gap 7.0 (5-15) BUN 11 (7-18) mg/dL Creatinine 0.9 (0.7-1.3) mg/dL Est Cr Clr Drug Dosing 115.50 mL/min Estimated GFR (MDRD) > 60 (>60) mL/min BUN/Creatinine Ratio 12.2 L (14-18) Glucose 105 H (70-99) mg/dL Calcium 8.7 (8.5-10.1) mg/dL Total Bilirubin 0.7 (0.2-1.0) mg/dL AST 6 L (15-37) U/L ALT 17 (16-63) U/L Alkaline Phosphatase 65 (46-116) U/L Total Protein 6.1 L (6.4-8.2) g/dl Albumin 3.3 L (3.4-5.0) g/dl Globulin 2.8 gm/dL Albumin/Globulin Ratio 1.2 (1-2) Lipase 41 L (73-393) U/L Meds: Medications Generic Name Dose Route Start Last Admin Trade Name Freq PRN Reason Stop Dose Admin Lactated Ringer's 1,000 mls @ 125 mls/hr 05/15/21 09:45 Ringers, Lactated IV ASDIRECTED EDNA Sodium Chloride 10 ml 05/15/21 09:43 05/15/21 11:07 Sodium Chloride 0.9% 10 Ml Syringe FLUSH 10 ml ONETIME PRN Administration IV FLUSH Discontinued Medications Generic Name Dose Route Start Last Admin Trade Name Freq PRN Reason Stop Dose Admin Diatrizoate Meglum/Diatrizoate Sod 120 ml 05/15/21 09:43 05/15/21 11:07 Diatrizoate Meglumine/Diatrizoate Sodium 37% 120 Ml Bottle PO 05/15/21 09:44 30 ml ONETIME ONE Administration Hydromorphone HCl 0.5 mg 05/15/21 09:35 05/15/21 09:57 Hydromorphone 0.5 Mg/0.5 Ml Syringe IVPUSH 05/15/21 09:36 0.5 mg ONETIME ONE Administration Lactated Ringer's 1,000 mls @ 999 mls/hr 05/15/21 09:35 05/15/21 09:57 Ringers, Lactated IV 05/15/21 10:35 999 mls/hr .BOLUS ONE Administration Iopamidol 100 ml 05/15/21 09:43 05/15/21 11:07 Iopamidol 612 Mg/Ml 100 Ml Bottle IVPUSH 05/15/21 09:44 100 ml ONETIME ONE Administration Ondansetron HCl 4 mg 05/15/21 09:35 05/15/21 09:59 Ondansetron 4 Mg/2 Ml Sdv IVPUSH 05/15/21 09:36 4 mg ONETIME ONE Administration - Re-Assessments/Exams Free Text/Narrative Re-Assessment/Exam: 05/15/21 11:44 I did do a repeat abdominal pelvic CT with IV and oral contrast the appendix is seen and measures the upper limits of normal. He does not have an elevated white count. Case was discussed with Dr. Addom, on-call surgeon. Her thought is to try another round to alleviate his constipation. We will have him take 255 g of MiraLAX with a half a gallon of Gatorade and have him drink it. The patient understands this and agrees to return to the emergency room in 12 hours if not better sooner if getting worse sooner if he develops a fever or worsening symptoms. Departure - Departure Time of Disposition: 11:46 Disposition: Home, Self-Care 01 Clinical Impression: Abdominal pain Qualifiers: Abdominal location: lower abdomen, unspecified Qualified Code(s): R10.30 - Lower abdominal pain, unspecified Constipation Qualifiers: Constipation type: other constipation type Qualified Code(s): K59.09 - Other constipation - Discharge Information Referrals: PCP,None [Primary Care Provider] - Forms: ED Department Discharge Additional Instructions: Return to the emergency room in 12 hours if not better sooner if getting worse return if you start running fevers or worsening problems. As we discussed parts picker to 255 g of MiraLAX this is a small bottle mixed this with a half a gallon of Gatorade and drink it. Sepsis Event Note (ED) - Evaluation Sepsis Screening Result: No Definite Risk - Focused Exam Vital Signs: Vital Signs Temp Pulse Resp BP Pulse Ox 05/15/21 08:41 36.2 C 77 16 102/72 100 - My Orders Last 24 Hours: My Active Orders 05/15/21 09:32 UA RFX BRIEN AND CULT IF INDIC [URIN] Stat 05/15/21 09:43 Sodium Chloride 0.9% [Saline Flush] 10 ml FLUSH ONETIME PRN 05/15/21 09:45 Lactated Ringers [Ringers, Lactated] 1,000 ml IV ASDIRECTED - Assessment/Plan Last 24 Hours: My Active Orders 05/15/21 09:32 UA RFX BRIEN AND CULT IF INDIC [URIN] Stat 05/15/21 09:43 Sodium Chloride 0.9% [Saline Flush] 10 ml FLUSH ONETIME PRN 05/15/21 09:45 Lactated Ringers [Ringers, Lactated] 1,000 ml IV ASDIRECTED
[2021-05-15] MEDS ORDERED: Lactated Ringers 1,000 ML IV ONE (09:35)
[2021-05-15] MEDS ORDERED: HYDROmorphone 0.5 MG/0.5 ML Syringe IVPUSH ONE (09:35)
[2021-05-15] MEDS ORDERED: Ondansetron 4 MG/2 ML SDV IVPUSH ONE (09:35)
[2021-05-15] MEDS ORDERED: Diatrizoate Meglumine/Diatrizoate Sodium 37% 120 ML Bottle PO ONE (09:43)
[2021-05-15] MEDS ORDERED: Iopamidol 612 MG/ML 100 ML Bottle IVPUSH ONE (09:43)
[2021-05-15] MEDS ORDERED: Lactated Ringers 1,000 ML IV SCH (09:45)
[2021-05-15] MEDS: Sodium Chloride 0.9% 10 ML Syringe FLUSH PRN ×2 (10:50→11:07)
--- NOTE | 2021-05-15 11:25 | CT ---
CT abdomen and pelvis Technique: Multiple axial sections were obtained from above the dome of the diaphragm inferiorly through the pubic symphysis. Intravenous and oral contrast was utilized. Reconstructed coronal and sagittal images were obtained. Comparison: Prior abdomen and pelvis CT from 05/14/21. Findings: Appendix is seen on this exam which measures up to 8 mm. This is at the upper limits of normal. Please correlate if patient has any symptoms of early appendicitis. There is a small amount of free fluid being seen within the pelvis which is within the dependent portions of the pelvis as well as off the inferior cecum. Visualized lung bases are clear. Liver shows no focal parenchymal abnormality. Spleen size is normal. Adrenal glands show no nodule. Pancreas shows no abnormality. Gallbladder contains no calcified gallstones. Kidneys show symmetric contrast enhancement with no hydronephrosis or mass. Abdominal aorta shows no aneurysm. No retroperitoneal adenopathy is seen. Right colon is dilated with stool and fluid. Transverse colon shows evidence of mostly air and fluid. Stool is noted within the descending colon and rectosigmoid regions. No pelvic adenopathy is seen. No inguinal adenopathy is noted. Orthopedic intramedullary arlen is noted within the left femur. Impression: 1. Appendix is seen and measures at the upper limits of normal at 8 mm. Please correlate if patient has symptoms of early appendicitis versus a normal variant appendix. 2. Small amount of free fluid off the inferior cecum as well as within the dependent portions of the pelvis. This free fluid has increased from prior study. 3. Fluid and stool are noted within the right colon. Air and fluid are noted within the transverse colon. Mild increased stool is seen within the left colon as well as rectosigmoid regions. 4. Other findings believed to be incidental as noted above. Diagnostic code #3
[2021-05-15 11:46] VITALS: BP 127/74; PULSE 76
== END 2021-05-15 11:57 | disposition home or self-care (01) ==
LOC: JD.ED 08:31
DX: K59.09 Other constipation (principal); Z72.0 Tobacco use
CPT/HCPCS: 36415; 74177; 80053; 83690; 85025; 96374; 96375; 99284; J1170; J2405; J7120; Q9963; Q9967; 99285

== ENCOUNTER 2021-05-23 21:36 | Emergency (ER) | payer MEDICAID ==
[2021-05-23 21:51] VITALS: BP 122/82; PULSE 103
--- NOTE | 2021-05-23 23:22 | EDM.PDOC ---
ED [facility] GENERAL MEDICAL PROBLEM - General Chief Complaint: Abdominal Pain Stated Complaint: ABD PAIN Time Seen by Provider: 05/23/21 21:50 Source of Information: Reports: Patient, Old Records History Limitations: Reports: No Limitations - History of Present Illness INITIAL COMMENTS - FREE TEXT/NARRATIVE: Patient is a 30-year-old male with no significant past medical history pres enting with a chief complaint of right-sided abdominal pain and testicular pain. Patient reports symptom duration of 10 days. Patient has been in the emergency room twice previously for evaluation with this complaint. No definitive diagnosis. Patient states the pain occurs intermittently. Pain is most severe in the right lower quadrant of the abdomen and radiates to the top of the right testicle. Nothing seems to make symptoms better or worse. Patient denies any fevers, dysuria, and penile discharge, nausea, vomiting. Patient reports prior treatment for chlamydia recently. He states he received this treatment while in the office and does not take any medication for long period of time. Right Lower Abdomen Pain Score (Numeric/FACES): 2 - Related Data Allergies Allergy/AdvReac Type Severity Reaction Status Date / Time No Known Allergies Allergy Verified 05/14/21 10:58 Home Meds: Home Meds . [No Known Home Meds] 05/14/21 [History] Past Medical History Musculoskeletal History: Reports: Other (See Below) Other Musculoskeletal History: left femur with arlen - Infectious Disease History Infectious Disease History: Reports: Chicken Pox - Past Surgical History HEENT Surgical History: Reports: Myringotomy w Tube(s), Oral Surgery Musculoskeletal Surgical History: Reports: Other (See Below) Other Musculoskeletal Surgeries/Procedures:: surgery to L femur with rods Social & Family History - Family History Family Medical History: No Pertinent Family History - Tobacco Use Tobacco Use Status *Q: Current Every Day Tobacco User Years of Tobacco use: 16 Packs/Tins Daily: 0.4 - Caffeine Use Caffeine Use: Reports: Coffee - Recreational Drug Use Recreational Drug Use: No - Living Situation & Occupation Living situation: Reports: Single Occupation: Employed ED ROS GENERAL - Review of Systems Review Of Systems: See Below Free Text/Narrative/Comment: In addition to that documented in the HPI above, the additional ROS was obtained: Constitutional: Denies fevers or chills Eyes: Denies vision changes ENMT: Denies sore throat CV: Denies chest pain Resp: Denies SOB GI: Denies vomiting or diarrhea : Denies painful urination MSK: Denies recent trauma Skin: Denies new rashes Neuro: Denies new numbness or tingling or weakness Endocrine: Denies unexpected weight loss Heme: Denies bleeding disorders ED EXAM, GI/ABD - Physical Exam Exam: See Below Text/Narrative:: I have reviewed the triage vital signs Const: Well nourished, well developed, appears stated age Eyes: Pupils Equal and reactive to light bilaterally, no conjunctival injection HENT: No signs of trauma or swelling, Neck supple without meningismus CV: Regular Rate Rhythm, Warm, well-perfused extremities RESP: Unlabored respiratory effort GI: soft, non-tender, non-distended, no masses : (RN Bre present) patient has normal penis. No discharge. Mild inguinal lymphadenopathy bilaterally. Demonstrates positive Prehn sign. Otherwise, mild testicular tenderness to the northern pole of the testicle. No swelling noted. Cremasteric reflex intact MSK: No gross deformities appreciated Skin: Warm, dry. No rashes Neuro: Alert, hog pusher II-XII grossly intact. Sensation and motor function of extremities grossly intact. Psych: Appropriate mood and affect. Course - Vital Signs Last Recorded V/S: Last Vital Signs Temp 36.8 C 05/23/21 21:46 Pulse 103 H 05/23/21 21:46 Resp 20 05/23/21 21:46 BP 122/82 05/23/21 21:46 Pulse Ox 100 05/23/21 21:46 - Orders/Labs/Meds Orders: Active Orders 24 hr Category Date Time Status Scrotum and Contents [US] Stat Exams 05/23/21 23:04 Taken Labs: Laboratory Tests 05/23/21 05/23/21 05/23/21 Range/Units 22:34 22:34 22:43 WBC (4.23-9.07) K/mm3 RBC (4.63-6.08) M/mm3 Hgb (13.7-17.5) gm/dl Hct (40.1-51.0) % MCV (79.0-92.2) fl MCH (25.7-32.2) pg MCHC (32.2-35.5) g/dl RDW Std Deviation (35.1-43.9) fL Plt Count (163-337) K/mm3 MPV (9.4-12.3) fl Neut % (Auto) (34.0-67.9) % Lymph % (Auto) (21.8-53.1) % Vernon % (Auto) (5.3-12.2) % Eos % (Auto) (0.8-7.0) Baso % (Auto) (0.1-1.2) % Neut # (Auto) (1.78-5.38) K/mm3 Lymph # (Auto) (1.32-3.57) K/mm3 Vernon # (Auto) (0.30-0.82) K/mm3 Eos # (Auto) (0.04-0.54) K/mm3 Baso # (Auto) (0.01-0.08) K/mm3 Sodium (136-145) mEq/L Potassium (3.5-5.1) mEq/L Chloride (98-107) mEq/L Carbon Dioxide (21-32) mEq/L Anion Gap (5-15) BUN (7-18) mg/dL Creatinine (0.7-1.3) mg/dL Est Cr Clr Drug Dosing mL/min Estimated GFR (MDRD) (>60) mL/min BUN/Creatinine Ratio (14-18) Glucose (70-99) mg/dL Calcium (8.5-10.1) mg/dL Total Bilirubin (0.2-1.0) mg/dL AST (15-37) U/L ALT (16-63) U/L Alkaline Phosphatase (46-116) U/L Total Protein (6.4-8.2) g/dl Albumin (3.4-5.0) g/dl Globulin gm/dL Albumin/Globulin Ratio (1-2) Urine Color Yellow (Yellow) Urine Appearance Clear (Clear) Urine pH 7.0 (5.0-8.0) Ur Specific [place] 1.020 (1.005-1.030) Urine Protein Negative (Negative) Urine Glucose (UA) Negative (Negative) Urine Ketones Negative (Negative) Urine Occult Blood Negative (Negative) Urine Nitrite Negative (Negative) Urine Bilirubin Negative (Negative) Urine Urobilinogen 0.2 (0.2-1.0) Ur Leukocyte Esterase Negative (Negative) Urine RBC 0-5 (0-5) /hpf Urine WBC 0-5 (0-5) /hpf Ur Squamous Epith Cells Not seen (0-5) /hpf Amorphous Sediment Moderate H (NOT SEEN) /hpf Urine Bacteria Few (FEW) /hpf Urine Mucus Rare (FEW) /hpf SARS-CoV-2 RNA (JOANA) Negative (NEGATIVE) C trachomatis DNA (PCR) Not detected N gonorrhoeae DNA (PCR) Not detected 05/23/21 05/23/21 Range/Units 22:43 22:43 WBC 6.73 (4.23-9.07) K/mm3 RBC 4.43 L (4.63-6.08) M/mm3 Hgb 13.6 L D (13.7-17.5) gm/dl Hct 40.6 (40.1-51.0) % MCV 91.6 D (79.0-92.2) fl MCH 30.7 (25.7-32.2) pg MCHC 33.5 (32.2-35.5) g/dl RDW Std Deviation 39.6 (35.1-43.9) fL Plt Count 333 D (163-337) K/mm3 MPV 8.0 L (9.4-12.3) fl Neut % (Auto) 59.1 (34.0-67.9) % Lymph % (Auto) 24.7 (21.8-53.1) % Vernon % (Auto) 12.8 H (5.3-12.2) % Eos % (Auto) 3.0 (0.8-7.0) Baso % (Auto) 0.4 (0.1-1.2) % Neut # (Auto) 3.98 (1.78-5.38) K/mm3 Lymph # (Auto) 1.66 (1.32-3.57) K/mm3 Vernon # (Auto) 0.86 H (0.30-0.82) K/mm3 Eos # (Auto) 0.20 (0.04-0.54) K/mm3 Baso # (Auto) 0.03 (0.01-0.08) K/mm3 Sodium 145 (136-145) mEq/L Potassium 3.8 (3.5-5.1) mEq/L Chloride 106 (98-107) mEq/L Carbon Dioxide 31 (21-32) mEq/L Anion Gap 11.8 (5-15) BUN 15 (7-18) mg/dL Creatinine 0.9 (0.7-1.3) mg/dL Est Cr Clr Drug Dosing 112.19 mL/min Estimated GFR (MDRD) > 60 (>60) mL/min BUN/Creatinine Ratio 16.7 (14-18) Glucose 86 (70-99) mg/dL Calcium 8.8 (8.5-10.1) mg/dL Total Bilirubin 0.2 (0.2-1.0) mg/dL AST 9 L (15-37) U/L ALT 17 (16-63) U/L Alkaline Phosphatase 65 (46-116) U/L Total Protein 6.8 (6.4-8.2) g/dl Albumin 3.4 (3.4-5.0) g/dl Globulin 3.4 gm/dL Albumin/Globulin Ratio 1.0 (1-2) Urine Color (Yellow) Urine Appearance (Clear) Urine pH (5.0-8.0) Ur Specific [place] (1.005-1.030) Urine Protein (Negative) Urine Glucose (UA) (Negative) Urine Ketones (Negative) Urine Occult Blood (Negative) Urine Nitrite (Negative) Urine Bilirubin (Negative) Urine Urobilinogen (0.2-1.0) Ur Leukocyte Esterase (Negative) Urine RBC (0-5) /hpf Urine WBC (0-5) /hpf Ur Squamous Epith Cells (0-5) /hpf Amorphous Sediment (NOT SEEN) /hpf Urine Bacteria (FEW) /hpf Urine Mucus (FEW) /hpf SARS-CoV-2 RNA (JOANA) (NEGATIVE) C trachomatis DNA (PCR) N gonorrhoeae DNA (PCR) Meds: Medications Discontinued Medications Generic Name Dose Route Start Last Admin Trade Name Freq PRN Reason Stop Dose Admin Ketorolac Tromethamine 15 mg 05/24/21 00:10 05/24/21 00:23 Ketorolac 15 Mg/Ml Sdv IM 05/24/21 00:11 15 mg ONETIME ONE Administration Departure - Departure Time of Disposition: 00:57 Disposition: Home, Self-Care 01 Clinical Impression: Abdominal pain Qualifiers: Abdominal location: lower abdomen, unspecified Qualified Code(s): R10.30 - Lower abdominal pain, unspecified - Discharge Information Instructions: Abdominal Pain, Adult Referrals: PCP,None [Primary Care Provider] - Forms: ED Department Discharge Additional Instructions: I recommend following up with a primary care physician in the next 1 week. Return to the emergency room if you develop fevers, uncontrolled vomiting or any other emergent concerns. Sepsis Event Note (ED) - Evaluation Sepsis Screening Result: No Definite Risk - Focused Exam Vital Signs: Vital Signs Temp Pulse Resp BP Pulse Ox 05/23/21 21:46 36.8 C 103 H 20 122/82 100 - My Orders Last 24 Hours: My Active Orders 05/23/21 23:04 Scrotum and Contents [US] Stat - Assessment/Plan Last 24 Hours: My Active Orders 05/23/21 23:04 Scrotum and Contents [US] Stat Assessment:: Patient is a 30-year-old male with a complaint of right-sided abdominal pain and testicular pain. Examination in the emergency room is unremarkable. Course in the emergency room was unremarkable. Differential diagnosis considered for this patient include testicular torsion, epididymitis, orchitis, strangulated hernia, appendicitis. Laboratory studies reviewed without significant abnormality. Scrotal ultrasound was performed that was within normal limits. At this point, no evidence of infectious process or hernia and therefore will hold off on repeat CT scan since patient has 2 prior within the last 10 days to 2 weeks. Patient is currently without pain at time of discharge. Given appropriate return precautions. Patient agrees with plan of care.
[2021-05-24] MEDS ORDERED: Ketorolac 15 MG/ML SDV IM ONE (00:10)
[2021-05-24 00:15] LABS: C. TRACHOMATIS BY PCR NOT DETECTED; N. GONORRHOEAE BY PCR NOT DETECTED
--- NOTE | 2021-05-24 06:34 | US ---
Testicular ultrasound: Multiple real-time images of the testicles were obtained. Comparison: No prior testicular imaging is available. Findings: Both testicles have a homogeneous ultrasound appearance. Both arterial and venous blood flow are seen within the testicles. Epididymis appear within normal limits. Small amount of fluid is seen around the right testicle. Measurements: Right testicle: 4.3 x 2.6 x 3.7 cm Left testicle: 4.1 x 2.5 x 2.8 cm Impression: 1. Minimal hydrocele on the right side. 2. Testicular ultrasound is otherwise unremarkable. Diagnostic code #2 I agree with preliminary report from [facility], finalized on 05/24/21, 1:00 AM ONLINE EDUCATION MANAGER, code 1
== END 2021-05-24 01:27 | disposition home or self-care (01) ==
LOC: JD.ED 21:36
DX: R10.31 Right lower quadrant pain (principal); Z72.0 Tobacco use; Z20.822 Contact with and (suspected) exposure to COVID-19
CPT/HCPCS: 36415; 76870; 80053; 81001; 85025; 87491; 87591; 87635; 93975; 96372; 99284; J1885; U0002

== ENCOUNTER 2021-07-26 19:47 | Emergency (ER) | payer SELFPAY ==
[2021-07-26] MEDS ORDERED: Dicyclomine 10 MG Cap PO ONE (20:43)
[2021-07-26 21:10] VITALS: BP 137/82
[2021-07-26] MEDS ORDERED: Magnesium Citrate Solution 296 ML Bottle PO ONE (21:44)
[2021-07-26 21:56] VITALS: PULSE 67
== END 2021-07-26 21:55 | disposition home or self-care (01) ==
LOC: JD.ED 19:47
DX: K59.09 Other constipation (principal)
CPT/HCPCS: 36415; 74018; 80053; 85025; 86140; 99284; A9270

== ENCOUNTER 2021-07-28 05:30 | Inpatient (IN) | payer SELFPAY ==
[2021-07-28] MEDS ORDERED: HYDROmorphone 0.5 MG/0.5 ML Syringe IVPUSH ONE (06:21)
[2021-07-28] MEDS ORDERED: Ondansetron 4 MG/2 ML SDV IVPUSH ONE (06:21)
[2021-07-28] MEDS ORDERED: Sodium Chloride 0.9% 1,000 ML IV SCH (06:30)
[2021-07-28] MEDS ORDERED: HYDROmorphone 1 MG/ML Syringe IVPUSH ONE ×2 (07:05→09:28)
[2021-07-28 09:10] LABS: C. TRACHOMATIS BY PCR NOT DETECTED; N. GONORRHOEAE BY PCR NOT DETECTED
[2021-07-28] MEDS ORDERED: Piperacillin/Tazobactam 4.5 GM in Sodium Chloride 0.9% 100 ML IV ONE (11:47)
[2021-07-28] MEDS ORDERED: Lidocaine 1% 30 ML SDV ONE (12:27)
[2021-07-28] MEDS ORDERED: fentaNYL 250 MCG/5 ML SDV ONE (12:47)
[2021-07-28] MEDS ORDERED: Midazolam 1 MG/ML 2 ML SDV ONE (12:47)
[2021-07-28] MEDS ORDERED: Propofol 200 MG/20 ML SDV ONE (12:47)
[2021-07-28] MEDS ORDERED: Lidocaine 1% 4 ML ONE (12:48)
[2021-07-28] MEDS ORDERED: Ondansetron 4 MG/2 ML SDV ONE (13:00)
[2021-07-28] MEDS ORDERED: Dexamethasone 4 MG/ML 5 ML MDV ONE (13:00)
[2021-07-28] MEDS ORDERED: Succinylcholine/Sod PF 100 MG/5 ML SYRINGE IV ONE (13:08)
[2021-07-28] MEDS ORDERED: Lactated Ringers 1,000 ML ONE ×3 (13:08→16:00)
[2021-07-28] MEDS ORDERED: Bupivacaine 0.5% 30 ML SDV ONE (13:34)
[2021-07-28] MEDS ORDERED: Bupivacaine 0.25%/EPINEPHrine 1:200,000 30 ML SDV ONE (13:34)
[2021-07-28] MEDS ORDERED: HYDROmorphone 0.5 MG/0.5 ML Syringe IVPUSH PRN (14:28)
[2021-07-28] MEDS ORDERED: fentaNYL 100 MCG/2 ML SDV IVPUSH PRN (14:28)
[2021-07-28] MEDS ORDERED: HYDROmorphone 0.5 MG/0.5 ML Syringe ONE ×2 (14:29→15:17)
[2021-07-28] MEDS ORDERED: Polyethylene Glycol 3350 Powder 17 GM Packet PO PRN (16:50)
[2021-07-28] MEDS ORDERED: Ondansetron 4 MG/2 ML SDV IVPUSH PRN (16:50)
[2021-07-28] MEDS: HYDROmorphone 0.5 MG/0.5 ML Syringe IVPUSH PRN (20:10)
[2021-07-28] MEDS: Piperacillin/Tazobactam 4.5 GM in Sodium Chloride 0.9% 100 ML IV SCH (20:11)
[2021-07-28] MEDS: Lactated Ringers 1,000 ML IV SCH (20:17)
[2021-07-28] MEDS: Acetaminophen/HYDROcodone 325-5 MG Tab PO PRN (21:26)
[2021-07-29] MEDS: Acetaminophen/HYDROcodone 325-5 MG Tab PO PRN ×5 (01:55→22:41)
[2021-07-29] MEDS: Lactated Ringers 1,000 ML IV SCH (04:30)
[2021-07-29] MEDS: Piperacillin/Tazobactam 4.5 GM in Sodium Chloride 0.9% 100 ML IV SCH (05:49)
[2021-07-29] MEDS ORDERED: Lactated Ringers 1,000 ML IV SCH ×2 (09:45→17:30)
[2021-07-29] MEDS: HYDROmorphone 0.5 MG/0.5 ML Syringe IVPUSH PRN ×2 (09:52→23:35)
[2021-07-29] MEDS: Simethicone 80 MG Tab.Chew PO PRN (13:04)
[2021-07-29] MEDS: Nicotine 21 MG/24 Hr Patch TRDERM SCH (17:12)
[2021-07-30] MEDS: Acetaminophen/HYDROcodone 325-5 MG Tab PO PRN ×3 (07:49→17:51)
[2021-07-30] MEDS: Nicotine 21 MG/24 Hr Patch TRDERM SCH (08:04)
[2021-07-30] MEDS: Polyethylene Glycol 3350 Powder 17 GM Packet PO SCH (18:12)
[2021-07-30] MEDS: Simethicone 80 MG Tab.Chew PO PRN (20:57)
[2021-07-31] MEDS: Simethicone 80 MG Tab.Chew PO PRN (03:04)
[2021-07-31] MEDS: Acetaminophen/HYDROcodone 325-5 MG Tab PO PRN (06:03)
[2021-07-31] MEDS: Polyethylene Glycol 3350 Powder 17 GM Packet PO SCH (08:31)
[2021-07-31] MEDS: Nicotine 21 MG/24 Hr Patch TRDERM SCH (08:32)
[2021-07-31 09:16] VITALS: BP 122/80; PULSE 58
== END 2021-07-31 10:00 | disposition home or self-care (01) | DRG 329 ==
LOC: JD.ED 05:30 → JD.SDS 11:55 → JD.MS 18:15 → JD.SDS 20:12
PROVIDERS: ADMIT Surgery; ATTEND Surgery
PROC: 0DB84ZZ Excision of Small Intestine, Percutaneous Endoscopic Approach (ICD-10-PCS; principal; 2021-07-28)
PROC: 0DN84ZZ Release Small Intestine, Percutaneous Endoscopic Approach (ICD-10-PCS; 2021-07-28)
DX: K57.12 Diverticulitis of small intestine without perforation or abscess without bleeding (principal); K65.8 Other peritonitis; Z20.822 Contact with and (suspected) exposure to COVID-19; F17.200 Nicotine dependence, unspecified, uncomplicated
CPT/HCPCS: 00790; 36415; 51701; 51798; 74177; 74177-26; 76870; 76870-26; 80048; 80053; 81001; 83690; 83735; 84100; 85007; 85025; 85027; 87491; 87591; 93975; 96365; 96375; 99140; 99285; 99285-25; A9270-GY; J0330; J1100; J1170; J2250; J2405; J2543; J2704; J2710; J3010; J3490; J7030; J7120; U0002

== ENCOUNTER 2023-02-02 21:32 | Emergency (ER) | payer SELFPAY ==
[2023-02-02 21:45] VITALS: BP 126/77; PULSE 84
== END 2023-02-02 22:43 | disposition home or self-care (01) ==
LOC: JD.ED 21:32
DX: S51.011A Laceration without foreign body of right elbow, initial encounter (principal); Z72.0 Tobacco use; W29.8XXA Contact with other powered hand tools and household machinery, initial encounter
CPT/HCPCS: 12001; 99282; 99283

== ENCOUNTER 2023-06-12 15:40 | Emergency (ER) | payer OTHER, MEDICAID ==
[2023-06-12 16:51] LABS: BASOPHILS PERCENT AUTO 0.4 % (0.0-1.0); EOSINOPHILS ABSOLUTE AUTO 0.2 K/mm3 (0.0-0.4); EOSINOPHILS PERCENT AUTO 3.8 % (0.0-6.0); HEMATOCRIT 41.6 % (42.0-52.0); HEMOGLOBIN 14.1 gm/dl (14.0-18.0); IMMATURE GRAN ABSOLUTE AUTO 0.01 K/mm3 (0.00-0.05); IMMATURE GRAN PERCENT AUTO 0.2 % (0.0-0.4); LYMPHOCYTES ABSOLUTE AUTO 1.6 K/mm3 (1.0-4.8); LYMPHOCYTES PERCENT AUTO 30.8 % (24.0-44.0); MEAN CORPUSCULAR HEMOGLOBIN 31.3 pg (28.0-32.0); MEAN CORPUSCULAR HGB CONC 33.9 g/dl (32.0-36.0); MEAN CORPUSCULAR VOLUME 92.4 fl (83.0-99.0); MEAN PLATELET VOLUME 8.6 fl (9.4-12.4); MONOCYTES ABSOLUTE AUTO 0.6 K/mm3 (0.0-0.8); MONOCYTES PERCENT AUTO 10.9 % (0.0-8.0); NEUTROPHILS ABSOLUTE AUTO 2.7 K/mm3 (1.8-7.7); NEUTROPHILS PERCENT AUTO 53.9 % (41.0-71.0); PLATELET COUNT,PLT 225 K/mm3 (150-400); WHITE BLOOD CELL COUNT,WBC 5.04 K/mm3 (3.9-11.3)
[2023-06-12 16:58] LABS: INR 0.93
[2023-06-12 17:01] LABS: A/G RATIO 1.1 (1-2); ALANINE AMINOTRANSFERASE,ALT 43 U/L (16-63); ALBUMIN 3.4 g/dl (3.4-5.0); ALKALINE PHOSPHATASE 62 U/L (46-116); AMYLASE 31 U/L (25-115); ANION GAP 14.6 (5-15); ASPARTATE AMNIOTRANSFERASE,AST 16 U/L (15-37); BILIRUBIN TOTAL 0.2 mg/dL (0.2-1.0); BLOOD UREA NITROGEN,BUN 17 mg/dL (7-18); BUN/CREATININE RATIO 15.5 (14-18); CALCIUM 8.4 mg/dL (8.5-10.1); CARBON DIOXIDE,CO2 26 mEq/L (21-32); CHLORIDE,CL 109 mEq/L (98-107); CREATININE 1.1 mg/dL (0.7-1.3); ESTIMATED GFR 91 mL/min (>60); ETHANOL BLOOD MEDICAL 0.11 gm% (0.00); GLUCOSE RANDOM 109 mg/dL (70-99); POTASSIUM,K 3.6 mEq/L (3.5-5.1); PROTEIN TOTAL,TP 6.6 g/dl (6.4-8.2); SODIUM,NA 146 mEq/L (136-145)
[2023-06-12] MEDS ORDERED: Iopamidol 755 Mg/ML 100 ML Bottle IVPUSH ONE (17:45)
[2023-06-12] MEDS ORDERED: Sodium Chloride 0.9% 10 ML Syringe FLUSH ONE (17:45)
[2023-06-12] MEDS ORDERED: Lactated Ringers 1,000 ML IV SCH (17:45)
[2023-06-12 20:07] LABS: APPEARANCE,URINE CLEAR (Clear); BILIRUBIN,URINE NEGATIVE (Negative); COLOR,URINE YELLOW (Yellow); GLUCOSE,URINE NEGATIVE (Negative); KETONES,URINE NEGATIVE (Negative); LEUKOCYTE ESTERASE,URINE NEGATIVE (Negative); NITRITE,URINE NEGATIVE (Negative); OCCULT BLOOD,URINE NEGATIVE (Negative); PROTEIN,URINE NEGATIVE (Negative)
[2023-06-12 20:15] LABS: BARBITURATE SCREEN,URINE NEGATIVE (CUTOFF=200); BENZODIAZEPINES SCREEN,URINE NEGATIVE (CUTOFF=150); BUPRENORPHINE SCREEN,URINE NEGATIVE (CUTOFF=10); METHADONE SCREEN, URINE NEGATIVE (CUT0FF=200); METHAMPHETAMINES SCREEN, URINE PRESUMPTIVE POSITIVE (CUTOFF=500); OXYCODONE SCREEN,URINE NEGATIVE (CUT0FF=100); THC SCREEN,URINE 20 NG/ML NEGATIVE (CUTOFF=50)
[2023-06-12 20:18] LABS: AMPHETAMINES SCREEN, URINE PRESUMPTIVE POSITIVE (CUTOFF=500)
[2023-06-12 21:18] LABS: BACTERIA,URINE RARE /hpf (FEW); EPITHELIAL CELLS,URINE 0-5 /hpf (0-5); MUCUS,URINE NOT SEEN /hpf (FEW); RBC,URINE 0-5 /hpf (0-5); WBC,URINE 0-5 /hpf (0-5)
[2023-06-12 22:48] VITALS: BP 132/85; PULSE 95
== END 2023-06-12 21:30 | disposition home or self-care (01) ==
LOC: JD.ED 15:40
DX: M54.2 Cervicalgia (principal); F17.210 Nicotine dependence, cigarettes, uncomplicated; V89.2XXA Person injured in unspecified motor-vehicle accident, traffic, initial encounter; Y92.410 Unspecified street and highway as the place of occurrence of the external cause
CPT/HCPCS: 36415; 70450; 70486; 70498; 72125; 73590; 80053; 80306; 80307; 81001; 82150; 83605; 85025; 85610; 86850; 86900; 86901; 96360; 96361; 99284; J3490; J7120; Q9967

== ENCOUNTER 2023-10-04 05:34 | Emergency (ER) | payer SELFPAY ==
[2023-10-04] MEDS ORDERED: Sodium Chloride 0.9% 10 ML Syringe FLUSH PRN (05:58)
[2023-10-04] MEDS: Acetaminophen 325 MG Tab PO ONE (06:10)
[2023-10-04] MEDS: Sodium Chloride 0.9% 1,000 ML IV ONE (06:11)
[2023-10-04] MEDS: Ketorolac 15 MG/ML SDV IVPUSH ONE (06:11)
[2023-10-04] MEDS: Metoclopramide 10 MG/2 ML SDV IVPUSH ONE (06:26)
[2023-10-04] MEDS: diphenhydrAMINE 50 MG/ML SDV IVPUSH ONE (06:26)
[2023-10-04 13:17] VITALS: BP 130/71; PULSE 67
== END 2023-10-04 07:58 | disposition home or self-care (01) ==
LOC: JD.ED 05:34
DX: J01.90 Acute sinusitis, unspecified (principal); Z91.030 Bee allergy status; Z88.8 Allergy status to other drugs, medicaments and biological substances
CPT/HCPCS: 96361; 96374; 96375; 99283; A9270; J1200; J1885; J2765; J7030

== ENCOUNTER 2024-01-05 15:47 | Emergency (ER) | payer SELFPAY | END 2024-01-05 16:00 | disposition left against medical advice (07) | LOC: JD.ED 15:47 | DX: Z53.21 Procedure and treatment not carried out due to patient leaving prior to being seen by health care provider (principal) ==